=== PATIENT | male | born 1970 | race Caucasian/White ===

== ENCOUNTER 2021-06-21 10:21 | Emergency (ER) | payer BC ==
[~2021-06-21] VITALS: Ht 185 cm; Wt 113.0 kg
[2021-06-21 10:30] VITALS: BP 167/109
--- NOTE | 2021-06-21 10:47 | ED GI ---
General Chief Complaint: Rect Problems Stated Complaint: RECTAL BLEEDING Nursing Triage Note: ARRIVED VIA AMB TO ROOM 06. COMPLAINS OF A HEMORRHOID THAT IS CAUSING BLEEDING THAT STARTED THIS AM. Source of Information: Patient Exam Limitations: No Limitations (ROE JIMENEZ APRN) History of Present Illness Date Seen by Provider: Jun 21, 2021 Time Seen by Provider: 10:47 Initial Comments To ER with an exquisitely tender and swollen hemorrhoid to the left side since Friday. Bleeding started this morning. Timing/Duration: 1-2 Days Severity/Quality: Severe Radiation: No Radiation Activities at Onset: None Associated Symptoms: Denies Symptoms (ROE JIMENEZ APRN) Allergies and Home Medications Allergies Coded Allergies: No Known Drug Allergies (Unverified , 06/21/21) Patient Home Medication List Home Medication List Reviewed: Yes (ROE JIMENEZ APRN) Docusate Sodium (Colace) 100 Mg Capsule, 100 MG PO DAILY Prescribed by: ROE JIMENEZ on 06/21/21 1101 Hydrocodone/Acetaminophen (Hydrocodone-Acetamin 5-325 mg) 1 Each Tablet, 1 TAB PO Q4H PRN for PAIN-MODERATE (5-7) Prescribed by: ROE JIMENEZ on 06/21/21 1102 Lidocaine HCl (Lidocaine) 35 Gm Oint, 1 GM TP TID Prescribed by: ROE JIMENEZ on 06/21/21 1123 Review of Systems Review of Systems Constitutional: see HPI EENTM: No Symptoms Reported Respiratory: No Symptoms Reported Cardiovascular: No Symptoms Reported Gastrointestinal: See HPI, Rectal Bleeding Genitourinary: No Symptoms Reported Musculoskeletal: no symptoms reported Skin: no symptoms reported Psychiatric/Neurological: No Symptoms Reported Endocrine: No Symptoms Reported Hematologic/Lymphatic: No Symptoms Reported (ROE JIMENEZ APRN) Past Gxwiqpf-Muiknp-Pimpwx Hx Patient Social History Tobacco Use?: No Substance use?: No (ROE JIMENEZ APRN) Immunizations Up To Date Second COVID19 Vaccination Niraj: J&J (ROE JIMENEZ APRN) Physical Exam Vital Signs Vital Signs - First Documented 06/21/21 10:30 Temp 36.5 Pulse 100 Resp 16 B/P (MAP) 167/109 (128) Pulse Ox 99 O2 Delivery Room Air (SHITAL WOOD MD) Vital Signs Capillary Refill : Less Than 3 Seconds (ROE JIMENEZ APRN) Height/Weight/BMI Height: '" Weight: lbs. oz. kg; 33.00 BMI Method: General Appearance: WD/WN, no apparent distress HEENT: PERRL/EOMI, normal ENT inspection Respiratory: normal breath sounds, no respiratory distress, no accessory muscle use Cardiovascular: regular rate, rhythm, no murmur Gastrointestinal: normal bowel sounds, non tender, soft Extremities: normal range of motion, non-tender Male: other (There is a marble sized left-sided acutely thrombosed external hemorrhoid with 2 areas of active oozing of dark venous blood.) Neurologic/Psychiatric: alert, normal mood/affect, oriented x 3 Skin: normal color, warm/dry (ROE JIMENEZ APRN) Progress/Results/Core Measures Results/Orders Lab Results Laboratory Tests Test 06/21/21 10:49 Range/Units White Blood Count 8.5 4.3-11.0 10^3/uL Red Blood Count 5.02 4.30-5.52 10^6/uL Hemoglobin 14.5 13.3-17.7 g/dL Hematocrit 44 40-54 % Mean Corpuscular Volume 87 80-99 fL Mean Corpuscular Hemoglobin 29 25-34 pg Mean Corpuscular Hemoglobin Concent 33 32-36 g/dL Red Cell Distribution Width 12.5 10.0-14.5 % Platelet Count 259 130-400 10^3/uL Mean Platelet Volume 8.7 L 9.0-12.2 fL Immature Granulocyte % (Auto) 1 % Neutrophils (%) (Auto) 77 H 42-75 % Lymphocytes (%) (Auto) 11 L 12-44 % Monocytes (%) (Auto) 10 0-12 % Eosinophils (%) (Auto) 1 0-10 % Basophils (%) (Auto) 1 0-10 % Neutrophils # (Auto) 6.5 1.8-7.8 10^3/uL Lymphocytes # (Auto) 1.0 1.0-4.0 10^3/uL Monocytes # (Auto) 0.9 0.0-1.0 10^3/uL Eosinophils # (Auto) 0.1 0.0-0.3 10^3/uL Basophils # (Auto) 0.0 0.0-0.1 10^3/uL Immature Granulocyte # (Auto) 0.1 0.0-0.1 10^3/uL (SHITAL WOOD MD) Medications Given in ED Current Medications Medications Dose Ordered Sig/Christianne Route Start Time Stop Time Status Last Admin Dose Admin Lidocaine HCl 10 ml ONCE ONCE TOP 06/21/21 11:00 06/21/21 11:01 DC 06/21/21 10:52 10 ML Lidocaine/ Epinephrine 20 ml ONCE ONCE INJ 06/21/21 11:00 06/21/21 11:01 DC 06/21/21 10:52 20 ML (SHITAL WOOD MD) Vital Signs/I&O 06/21/21 10:30 Temp 36.5 Pulse 100 Resp 16 B/P (MAP) 167/109 (128) Pulse Ox 99 O2 Delivery Room Air (SHITAL WOOD MD) Blood Pressure Mean: 128 Departure Communication (Admissions) He has been using crdm-vae-[id number] steroid cream without relief. Given the severe pain will numb this up with a little lidocaine with epinephrine, incise the hemorrhoid and extract the clot. 1121-we anesthetized the anus with topical lidocaine gel. After letting that sit for 10 to 15 minutes the hemorrhoid was anesthetized with 2 mL of lidocaine with epinephrine. Small incision made with an 11 blade scalpel. Small to moderate amount of clot was extracted. Patient tolerated well. Topical lidocaine applied with minimal oozing of blood at the end. (ROE JIMENEZ APRN) Impression Primary Impression: Thrombosed external hemorrhoid Disposition: HOME, SELF-CARE Condition: Stable Departure-Patient Inst. Decision time for Depature: 10:57 (ROE JIMENEZ APRN) Referrals: KRYSTAL LIRA BRETT D DO KIDO, TAKAAKI MD NO,LOCAL PHYSICIAN (PCP) Primary Care Physician Patient Instructions: Hemorrhoids ED Add. Discharge Instructions: . Expect some oozing of blood to continue throughout today and then less intense but still persistent oozing tapering off throughout the next 3 to 5 days. Use the topical lidocaine as needed. Make sure that your bowel movements are soft with increased water intake for the next week at least and stool softener Colace. Take the hydrocodone for pain as directed. After you have a bowel movement try not to wipe with toilet paper for at least the next week, instead get in either the bathtub or the shower and rinse off. All discharge instructions reviewed with patient and/or family. Voiced understanding. Scripts Lidocaine HCl (Lidocaine) 35 Gm Oint 1 GM TP TID, #1 EA Prov: ROE JIMENEZ APRN 06/21/21 Docusate Sodium (Colace) 100 Mg Capsule 100 MG PO DAILY, #30 CAP Prov: ROE JIMENEZ APRN 06/21/21 Hydrocodone/Acetaminophen (Hydrocodone-Acetamin 5-325 mg) 1 Each Tablet 1 TAB PO Q4H PRN for PAIN-MODERATE (5-7), #14 TAB Prov: ROE JIMENEZ APRN 06/21/21 ATTENDING PHYSICIAN NOTE: I was physically present as attending physician in the emergency department during the care of this patient, but I was not directly involved in the decision making or delivery of care for this patient. (SHITAL WOOD MD) ROE JIMENEZ APRN Jun 21, 2021 10:47 SHITAL WOOD MD Jun 21, 2021 13:54
[2021-06-21] MEDS ORDERED: LIDOCAINE/EPI 2% 1:100,00 (XYLOCAINE) 20 ML VIAL INJ ONE (11:00)
[2021-06-21] MEDS ORDERED: LIDOCAINE UROJET 2% GEL 10 ML PKG TOP ONE (11:00)
[2021-06-21] MEDS ORDERED: ACHD5005 PO (11:01)
[2021-06-21] MEDS ORDERED: DOCU-143 PO (11:01)
[2021-06-21 11:07] LABS: BASOPHILS % (AUTO) 1 % (0-10); EOSINOPHILS # (AUTO) 0.1 10^3/uL (0.0-0.3); EOSINOPHILS % (AUTO) 1 % (0-10); HEMATOCRIT 44 % (40-54); HEMOGLOBIN 14.5 g/dL (13.3-17.7); LYMPHOCYTES % (AUTO) 11 % (12-44); MEAN CORPUSCULAR HEMOGLOBIN 29 pg (25-34); MEAN CORPUSCULAR HGB CONC 33 g/dL (32-36); MEAN CORPUSCULAR VOLUME 87 fL (80-99); MEAN PLATELET VOLUME 8.7 fL (9.0-12.2); MONOCYTES # (AUTO) 0.9 10^3/uL (0.0-1.0); MONOCYTES % (AUTO) 10 % (0-12); NEUTROPHILS # (AUTO) 6.5 10^3/uL (1.8-7.8); NEUTROPHILS % (AUTO) 77 % (42-75); PLATELET COUNT 259 10^3/uL (130-400); WHITE BLOOD COUNT 8.5 10^3/uL (4.3-11.0)
[2021-06-21] MEDS ORDERED: LD5O35 TP (11:23)
== END 2021-06-21 11:32 | disposition home or self-care (01) ==
LOC: ER 10:24
DX: K64.5 Perianal venous thrombosis (principal)
CPT/HCPCS: 36415; 85025

== ENCOUNTER 2021-11-08 05:30 | Outpatient (CLI) | payer BC ==
[~2021-11-08] VITALS: Ht 185 cm; Wt 115.0 kg
[~2021-11-08 05:30] MED LIST: ACHD5005 PO; DOCU-143 PO; LD5O35 TP
[2021-11-08] MEDS ORDERED: LISI20TA26 PO (10:17)
== END 2021-11-08 10:23 | disposition home or self-care (01) ==
LOC: PREOP 05:30
PROVIDERS: ATTEND Surgery
DX: Z01.818 Encounter for other preprocedural examination (principal)

== ENCOUNTER → 2021-11-12 | Outpatient (CLI) | payer BC ==
[~2021-11-12] MED LIST changes: +CATHETER FLUSH 10 ML SYR IV PRN; +HOLD METFORMIN - RECEIVED CONTRAST 20 ML VIAL IV SCH; +IOHEXOL 350 MG/ML 100 ML (OMNIPAQUE 350) VIAL IV ONE; +LISI20TA26 PO; +NS 100 ML (IVPB) BAG IV ONE
--- NOTE | 2021-11-12 11:47 | Diagnostic Imaging Report ---
PROCEDURE: CT abdomen and pelvis with and without contrast. TECHNIQUE: Precontrast acquisitions were acquired through the abdomen and pelvis. Multiple contiguous axial images were obtained through the abdomen and pelvis after the administration of intravenous contrast. Auto Exposure Controls were utilized during the CT exam to meet ALARA standards for radiation dose reduction. INDICATION: Abdominal pain and possible kidney stones. No prior studies are available for comparison. FINDINGS: The lung bases are clear. No discrete liver mass is detected. Gallbladder is unremarkable. No biliary ductal dilatation is seen. The pancreas and spleen are unremarkable. No adrenal mass is detected. There are multiple punctate nonobstructing calculi within both kidneys. In addition, there is a 5 mm calculus at the right UVJ producing moderate hydroureteronephrosis. The left ureter is unremarkable. Aorta is nonaneurysmal. No central retroperitoneal or mesenteric lymphadenopathy is seen. Bowel loops are nonobstructed. There is generalized colonic diverticulosis. There does appear to be some mild inflammatory stranding adjacent to the descending colon and mild diverticulitis cannot be entirely excluded. There is no free fluid or fluid collection identified. Prostate is unremarkable. IMPRESSION: 1. Bilateral nonobstructing nephrolithiasis. In addition, there is a 5 mm right UVJ calculus producing moderate hydroureteronephrosis. 2. Generalized diverticulosis. There are findings suggestive of mild diverticulitis of the descending colon as well. No bowel obstruction or abscess formation is identified. Dictated by: Dictated on workstation # [id number]
== END ==
LOC: RAD 09:49
PROVIDERS: ATTEND Surgery
DX: N13.2 Hydronephrosis with renal and ureteral calculous obstruction (principal); K57.90 Diverticulosis of intestine, part unspecified, without perforation or abscess without bleeding
CPT/HCPCS: 74178

== ENCOUNTER 2021-11-15 10:49 | Day surgery (SDC) | payer BC ==
[2021-11-15] VITALS (10 sets, daily range): BP systolic 89–149; BP diastolic 52–100
[~2021-11-15] VITALS: Ht 185 cm; Wt 115.0 kg
[~2021-11-15 10:49] MED LIST changes: -CATHETER FLUSH 10 ML SYR IV PRN; -HOLD METFORMIN - RECEIVED CONTRAST 20 ML VIAL IV SCH; -IOHEXOL 350 MG/ML 100 ML (OMNIPAQUE 350) VIAL IV ONE; -NS 100 ML (IVPB) BAG IV ONE
--- NOTE | 2021-11-15 11:01 | Progress Note-Pre Operative ---
Pre-Operative Progress Note H&P Reviewed The H&P was reviewed, patient examined and no changes noted. Date Seen by Provider: Nov 15, 2021 Time Seen by Provider: 11: Date H&P Reviewed: Nov 15, 2021 Time H&P Reviewed: 11: Pre-Operative Diagnosis: anal fistula, rectal pain ASHISH TREVINO DO Nov 15, 2021 11:01
[2021-11-15] MEDS ORDERED: LACTATED RINGERS 1,000 ML IV PRN (11:30)
[2021-11-15] MEDS ORDERED: proPOfol 200 MG/20 ML (DIPRIVAN) VIAL IV ONE (12:47)
[2021-11-15] MEDS ORDERED: fentaNYL INJ 100 MCG/2 ML AMP ONE (12:47)
[2021-11-15] MEDS ORDERED: ONDANSETRON 4 MG/2 ML (SDV) Z0FRAN ONE (12:47)
[2021-11-15] MEDS ORDERED: LIDOCAINE PF 2% 5 ML (XYLOCAINE) VIAL ONE (12:47)
[2021-11-15] MEDS ORDERED: MIDAZOLAM 2 MG/2 ML (VERSED) VIAL ONE (12:47)
[2021-11-15] MEDS ORDERED: SEVOFLURANE (ULTANE) 15 ML INHAL SOLN ONE (12:47)
[2021-11-15] MEDS ORDERED: LIDOCAINE/EPI 2% 1:100,00 (XYLOCAINE) 20 ML VIAL ONE (13:00)
[2021-11-15] MEDS ORDERED: morphine INJ 10 MG/ML 1ML (SYR OR VIAL) IVP ONE (16:15)
[2021-11-15] MEDS ORDERED: fentaNYL INJ 100 MCG/2 ML AMP IVP ONE (16:15)
[2021-11-15] MEDS ORDERED: ONDANSETRON 4 MG/2 ML (SDV) Z0FRAN IVP PRN (16:15)
--- NOTE | 2021-11-15 16:27 | Anesthesia-General Post-Op ---
General Patient Condition Mental Status/LOC: Same as Preop Cardiovascular: Satisfactory Nausea/Vomiting: Absent Respiratory: Satisfactory Pain: Controlled Complications: Absent Post Op Complications Complications None Follow Up Care/Instructions Patient Instructions None needed. Anesthesia/Patient Condition Patient Condition Patient is doing well, no complaints, stable vital signs, no apparent adverse anesthesia problems. No complications reported per nursing. ILYA SALDIVAR CRNA Nov 15, 2021 16:27
[2021-11-15] MEDS ORDERED: HYDROcodone/APAP 5 MG/325 MG (LORTAB) TAB ONE (16:28)
[2021-11-15] MEDS ORDERED: HYDROcodone/APAP 5 MG/325 MG (LORTAB) TAB PO ONE (16:45)
--- NOTE | 2021-11-15 22:56 | OPERATIVE REPORT ---
DATE OF SERVICE: 11/15/2021 PREOPERATIVE DIAGNOSIS: Anal fissure and rectal pain. POSTOPERATIVE DIAGNOSIS: Anterior anal fissure, left colitis, questionable inflammatory bowel disease. PROCEDURE: Colonoscopy with cold biopsies of the left colon. Exam under anesthesia with placement of seton. SURGEON: Kendrick Sosa DO ANESTHESIA: General. ESTIMATED BLOOD LOSS: Scant. COMPLICATIONS: None. INDICATIONS: The patient is a 50-year-old male who has been having some anal pain and drainage, suspected fissure on exam. Also having some rectal pain as well. He had not had a colonoscopy either. He was discussed risks and benefits of having colonoscopy performed and exam under anesthesia and all other indicated procedures. He understands and wished to proceed. Consent was signed in the chart. DESCRIPTION OF PROCEDURE: The patient was taken to the operating suite, was placed in lithotomy position. Digital rectal exam was performed noting an opening at the 3 o'clock position from previous incision and drainage from a thrombosed external hemorrhoid also noting an opening at the 12 o'clock position, which has a little bit of mucus/purulent drainage from the area that looks to be a fistula. Anteriorly, there feels to be some chronic changes. No other palpable polyps, masses or ulcerations. Scope was inserted in the rectum and advanced all the way to cecum with minimal difficulty. Scope was then slowly retracted back. Prep was adequate. Scope was then slowly retracted back. No polyps, masses or ulcerations in the cecum, ascending and transverse colon. There was mild diverticulosis throughout the colon. Once in the descending colon, continuous inflammatory changes present all the way down to the anus, also some small ulcerations apparent. Random cold biopsies of this was obtained. Also noting diverticulitis along the entire left colon as well. Scope was retroflexed noticing continuous erythematous changes and ulcerations. Scope was returned to its normal position, slowly withdrawn until completely removed. Ditmar retractor was then inserted in the rectum, noting an area that was suggestive of the fistula tract. Using an Angiocath needle, peroxide was inserted from the external opening and this did track up, so a probe was then inserted through this opening, was able to go through the entrance into the rectum. The seton was tied to the probe and pulled through the area and then secured with tension with 0 silk suture. The patient tolerated the procedure well without any complications. He will follow up in one week to go over pathology and tighten the seton. The patient also will need to be on high fiber diet due to diverticulosis. Further recommendations pending biopsy results. Job ID: [id number] DocumentID: [id number] Dictated Date: 11/15/2021 16:44:39 Identification Printing Machine Setter Date: 11/15/2021 22:56:14 Dictated By: DO ZHANNA HERRON
== END 2021-11-15 17:20 ==
LOC: SDC 10:49
PROVIDERS: ATTEND Surgery
DX: K52.9 Noninfective gastroenteritis and colitis, unspecified (principal)
CPT/HCPCS: 87081

== ENCOUNTER 2021-11-16 11:43 | Outpatient (CLI) | payer BC ==
[~2021-11-16] VITALS: Ht 185.5 cm; Wt 115.0 kg
== END 2021-11-16 12:23 | disposition home or self-care (01) ==
LOC: PREOP 11:43
PROVIDERS: ATTEND Urology
DX: Z01.818 Encounter for other preprocedural examination (principal)

== ENCOUNTER → 2021-11-16 | Outpatient (CLI) | payer BC ==
--- NOTE | 2021-11-16 10:03 | Diagnostic Imaging Report ---
EXAMINATION: Abdomen 1 view HISTORY: RT UVJ STONE RAVI NEPHROLITHIASIS COMPARISON: 11/12/2021 FINDINGS: There is a moderate amount of gas and stool throughout the colon. Nonobstructive bowel gas pattern. No radiopaque foreign body or visualized calculus. The lung bases are clear. The osseous structures are intact. IMPRESSION: No visualized radiopaque calculus or foreign body. Dictated by: Dictated on workstation # [id number]
== END ==
LOC: RAD 09:08
PROVIDERS: ATTEND Urology
DX: N20.2 Calculus of kidney with calculus of ureter (principal)
CPT/HCPCS: 74018

== ENCOUNTER 2021-11-20 06:30 | Day surgery (SDC) | payer BC ==
[~2021-11-20] VITALS: Ht 185.5 cm; Wt 115.0 kg
[2021-11-20] VITALS (9 sets, daily range): BP systolic 106–151; BP diastolic 69–115
[2021-11-20] MEDS ORDERED: cefTRIAXone 1 GM PRE-MIX 50 ML IV ONE ×2 (06:56→07:00)
[2021-11-20] MEDS: LACTATED RINGERS 1,000 ML IV PRN ×4 (07:00→11:38)
[2021-11-20] MEDS ORDERED: fentaNYL INJ 100 MCG/2 ML AMP IV ONE (08:00)
--- NOTE | 2021-11-20 08:04 | Progress Note-Pre Operative ---
Pre-Operative Progress Note H&P Reviewed The H&P was reviewed, patient examined and no changes noted. Date Seen by Provider: Nov 20, 2021 Time Seen by Provider: 08:03 Date H&P Reviewed: Nov 20, 2021 Time H&P Reviewed: 08:03 Pre-Operative Diagnosis: RT DISTAL URETERAL STONE ARLET MAZARIEGOS MD Nov 20, 2021 08:04
--- NOTE | 2021-11-20 08:15 | Progress Note-Post Operative ---
Post-Operative Progess Note Surgeon (s)/Platen Press Feeder (s) Surgeon ARLET MAZARIEGOS MD Platen Press Feeder: NONE Pre-Operative Diagnosis RT DISTAL URETERAL STONE Post-Operative Diagnosis SAME Procedure & Operative Findings Date of Procedure 11/20/21 Procedure Performed/Findings CYSTOSCOPY, RT URETEROSCOPY AND RT RETROGRADE UROGRAM Anesthesia Type GENERAL Estimated Blood Loss Estimated blood loss (mL): NONE Specimens/Packing Specimens Removed NONE Packing: NONE ARLET MAZARIEGOS MD Nov 20, 2021 08:14
--- NOTE | 2021-11-20 08:17 | Discharge Inst-Urology ---
Discharge Inst-Urology Reconcile Patient Problems Problems Reviewed?: Yes Final Diagnosis RT DISTAL URETERAL STONE Patient Instructions/Follow Up Plan/Assessment/Instructions Please make appointment to been seen in office in 4 weeks. Lab to provide patient with stone risk profile kit with instructions to do as O.P Increase oral fluids for 48 hours and then as needed. Diet and Activity as tolerated. If questions or concerns contact your physician Or seek help at emergency department. ARLET MAZARIEGOS MD Nov 20, 2021 08:17
--- NOTE | 2021-11-20 08:49 | Diagnostic Imaging Report ---
EXAMINATION: Abdomen, 1 view. HISTORY: Kidney stone. COMPARISON: 11/16/2021. FINDINGS: There is a moderate amount of gas and stool throughout the colon. Nonobstructive bowel gas pattern. No radiopaque foreign body. The osseous structures are intact. IMPRESSION: Moderate stool burden without other acute abnormality in the abdomen. Dictated by: Dictated on workstation # [id number]
[2021-11-20] MEDS ORDERED: morphine INJ 10 MG/ML 1ML (SYR OR VIAL) IVP ONE (09:15)
[2021-11-20] MEDS ORDERED: ONDANSETRON 4 MG/2 ML (SDV) Z0FRAN IVP PRN (09:15)
[2021-11-20] MEDS ORDERED: HYDROmorphone 2 MG/ML VIAL (DILAUDID) IV ONE (09:15)
[2021-11-20] MEDS ORDERED: MIDAZOLAM 2 MG/2 ML (VERSED) VIAL ONE (09:26)
[2021-11-20] MEDS ORDERED: LIDOCAINE PF 2% 5 ML (XYLOCAINE) VIAL ONE (09:26)
[2021-11-20] MEDS ORDERED: fentaNYL INJ 100 MCG/2 ML AMP ONE (09:26)
[2021-11-20] MEDS ORDERED: ROCURONIUM 50 MG/5 ML (ZEMURON) VIAL IV ONE (09:26)
[2021-11-20] MEDS ORDERED: GLYCOPYRROLATE 0.2 MG/ML (ROBINUL) 2 ML VIAL ONE (09:26)
[2021-11-20] MEDS ORDERED: proPOfol 200 MG/20 ML (DIPRIVAN) VIAL IV ONE (09:26)
[2021-11-20] MEDS ORDERED: NEOSTIGMINE (BLOXIVERZ ) 1 MG/1ML 10 ML VIAL ONE (09:26)
[2021-11-20] MEDS ORDERED: PHENYLEPHRINE 100 MCG/ML 10 ML (ANESTHESIA) SYR ONE (09:39)
[2021-11-20] MEDS ORDERED: SEVOFLURANE (ULTANE) 15 ML INHAL SOLN ONE (10:01)
--- NOTE | 2021-11-20 10:22 | Anesthesia-General Post-Op ---
General Patient Condition Mental Status/LOC: Same as Preop Cardiovascular: Satisfactory Nausea/Vomiting: Absent Respiratory: Satisfactory Pain: Controlled Complications: Absent Post Op Complications Complications None Follow Up Care/Instructions Patient Instructions None needed. Anesthesia/Patient Condition Patient Condition Patient is awake in PACU and doing well, no complaints, stable vital signs, no apparent adverse anesthesia problems. No complications reported per nursing. RADHA SUÁREZ DO Nov 20, 2021 10:22
--- NOTE | 2021-11-20 14:48 | OPERATIVE REPORT ---
DATE OF SERVICE: 11/20/2021 PREOPERATIVE DIAGNOSIS: Right distal ureteral stone. POSTOPERATIVE DIAGNOSIS: Right distal ureteral stone. OPERATION PERFORMED: Cystoscopy, right ureteroscopy and retrograde urogram. SURGEON: Luis Mazariegos MD ANESTHESIA: General. COMPLICATIONS: None. DESCRIPTION OF PROCEDURE: Under satisfactory general anesthesia, the patient in lithotomy position, genitalia were prepped and draped in the usual sterile fashion. Cystoscope was introduced under vision. The anterior urethra was normal. The prostate was nonobstructing. The bladder neck was open. Bladder was entered and carefully inspected. There was no foreign body or stones. Ureteric orifices normal in shape, size and configuration with clear efflux equal on both sides. Using the foroblique lens, I dilated the right ureteral orifice intramural portion to accommodate a 6.9 [place] semi-rigid ureteroscope. I went all the way up to the kidney and then antegrade, retrograde and antegrade, there were no stones, no evidence of any inflammation. I backed up all the way down to just above the ureteral orifice and I injected contrast. There was no filling defect anywhere in the ureter and complete emptying of the ureter immediately. I removed the ureteroscope, reinserted the cystoscope to empty the bladder. The patient tolerated the procedure and anesthesia well and was sent to recovery room in stable condition. PLAN: I told the that even if he had a stone that was missed all the way up to the kidney with the dilated ureter now you should have no problem passing it. If he does so, he should continue straining urine for a couple 3 days, we will also give him stone risk profile to do as an outpatient to work him up for prevention of stones. We will see him back in four weeks. CC: Dr. Herber Rodriguez - requested, unable to deliver. Job ID: [id number] DocumentID: [id number] Dictated Date: 11/20/2021 10:12:05 Heating Technician Date: 11/20/2021 14:47:56 Dictated By: LUIS MAZARIEGOS MD
== END 2021-11-20 11:45 | disposition home or self-care (01) ==
LOC: SDC 06:30
PROVIDERS: ATTEND Urology
DX: N20.2 Calculus of kidney with calculus of ureter (principal); R03.0 Elevated blood-pressure reading, without diagnosis of hypertension
CPT/HCPCS: 74018; 76000; 87081

== ENCOUNTER 2021-12-03 11:42 | Outpatient (RCR) | payer BC | END 2021-12-16 | disposition home or self-care (01) | LOC: LAB 11:42 | PROVIDERS: ATTEND Urology | DX: N20.9 Urinary calculus, unspecified (principal) | CPT/HCPCS: 36415; 82140; 82340; 82507; 82570; 83735; 83945; 83986; 84105; 84133; 84300; 84392; 84560 ==

== ENCOUNTER 2021-12-29 20:33 | Emergency (ER) | payer BC ==
[~2021-12-29] VITALS: Ht 185.4 cm; Wt 121.3 kg
[2021-12-29] MEDS ORDERED: LIDOCAINE 1% INJ 20 ML VIAL INJ ONE (21:00)
--- NOTE | 2021-12-29 21:12 | ED Upper Extremity ---
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 PATIENT HAS PRESSURE APPLIED AND WOUND IS COVERED WITH GUAZE. PT IS UTD ON TETANUS. 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 He states his tetanus is up todate. Onset: just prior to arrival Severity: mild Method of Injury: incised Allergies and Home Medications Allergies Coded Allergies: No Known Drug Allergies (Unverified , 06/21/21) Patient Home Medication List Home Medication List Reviewed: Yes Lisinopril (Lisinopril) 20 Mg Tablet, 20 MG PO DAILY, (Reported) Entered as Reported by: TOMASZ BLOOM on 11/08/21 1017 Review of Systems Constitutional: no symptoms reported EENTM: no symptoms reported Respiratory: no symptoms reported Cardiovascular: no symptoms reported Gastrointestinal: no symptoms reported Genitourinary: no symptoms reported Musculoskeletal: other (laceration right thenar eminence ) Past Khpdcvo-Honhvp-Cmwlyw Hx Patient Social History Tobacco Use?: Yes Smokeless Tobacco Frequency: Current Everyday User Use of E-Cig and/or Vaping dev: No Substance use?: No Alcohol Use?: No Pt feels they are or have been: No Immunizations Up To Date Influenza Vaccine Up-to-Date: No; Not Current First/Initial COVID19 Vaccinat: 2020 Second COVID19 Vaccination Niraj: 2020 Third COVID19 Vaccination Date: 2020 Seasonal Allergies Seasonal Allergies: Yes Past Medical History Surgeries: Yes (HERNIA REPAIR, HEMMORHOID, COLONOSCOPY) Respiratory: No Currently Using CPAP: No Currently Using BIPAP: No Cardiac: Yes Hypertension Neurological: No Genitourinary: Yes Kidney Stones Gastrointestinal: Yes (RECTAL PAIN, FISTULA) Musculoskeletal: Yes (UNSURE OF KIDNEY OR GI PROBLEM) Chronic Back Pain Endocrine: No HEENT: Yes (WEARS GLASSES) Cancer: No Psychosocial: No Integumentary: No Blood Disorders: No Physical Exam Vital Signs Vital Signs - First Documented 12/29/21 20:41 Temp 37.0 Pulse 100 Resp 16 B/P (MAP) 126/88 (101) Pulse Ox 98 O2 Delivery Room Air Capillary Refill : Less Than 3 Seconds Height, Weight, BMI Height: '" Weight: lbs. oz. kg; 35.00 BMI Method: General Appearance: WD/WN, no apparent distress HEENT: PERRL/EOMI Neck: non-tender Cardiovascular: regular rate, rhythm Respiratory: lungs clear Hand: laceration (Patient has a gaping 3 cm laceration over the thenar eminence. No deep tissue involvement) Neurologic/Psychiatric: coroner's juror II-XII nml as tested Procedures/Interventions Wound Location: Upper Extremities Wound Length (cm): 3 Wound's Depth, Shape: superficial Wound Explored: clean Irrigated w/ Saline (ccs): 250 Anesthesia: 1% Lidocaine Volume Anesthetic (ccs): 3 Suture: Ethlion Suture Size: 5-0 Number of Sutures: 4 Progress/Results/Core Measures Results/Orders My Orders Orders - PRINCE RODRIGUEZ Lidocaine 1% Inj 20 Ml (Xylocaine 1% Inj (12/29/21 21:00) Medications Given in ED Current Medications Medications Dose Ordered Sig/Christianne Route Start Time Stop Time Status Last Admin Dose Admin Lidocaine HCl 20 ml ONCE ONCE INJ 12/29/21 21:00 12/29/21 21:01 DC 12/29/21 21:19 20 ML Vital Signs/I&O 12/29/21 20:41 Temp 37.0 Pulse 100 Resp 16 B/P (MAP) 126/88 (101) Pulse Ox 98 O2 Delivery Room Air Blood Pressure Mean: 101 Departure Communication (Admissions) Wound irrigated and then closed at bedside without complication. Impression Primary Impression: Hand laceration Disposition: HOME, SELF-CARE Condition: Stable Departure-Patient Inst. Decision time for Depature: 22:00 Referrals: FABY VALDIVIA DO (PCP/Family) Primary Care Physician Patient Instructions: Wound Care (DC), Laceration Repair With Stitches ED PRINCE RODRIGUEZ Dec 29, 2021 21:12
[2021-12-29 22:14] VITALS: BP 125/84
== END 2021-12-29 22:14 | disposition home or self-care (01) ==
LOC: EDUNIT# 20:33 → ER 20:35
DX: S61.011A Laceration without foreign body of right thumb without damage to nail, initial encounter (principal); F17.200 Nicotine dependence, unspecified, uncomplicated; W26.8XXA Contact with other sharp object(s), not elsewhere classified, initial encounter
CPT/HCPCS: 12002; 12013

== ENCOUNTER 2022-01-08 15:39 | Emergency (ER) | payer BC ==
[2022-01-08 16:04] VITALS: BP 126/77
== END 2022-01-08 16:04 | disposition home or self-care (01) ==
LOC: EDUNIT# 15:39 → ER 15:41
DX: S61.011D Laceration without foreign body of right thumb without damage to nail, subsequent encounter (principal); X58.XXXD Exposure to other specified factors, subsequent encounter

== ENCOUNTER 2022-01-22 05:32 | Outpatient (CLI) | payer BC ==
[~2022-01-22] VITALS: Ht 185.4 cm; Wt 110.5 kg
== END 2022-01-23 10:55 | disposition home or self-care (01) ==
LOC: PREOP 05:32
PROVIDERS: ATTEND Surgery
DX: Z01.818 Encounter for other preprocedural examination (principal)

== ENCOUNTER 2022-01-24 08:55 | Day surgery (SDC) | payer BC ==
[~2022-01-24] VITALS: Ht 185.4 cm; Wt 110.5 kg
[2022-01-24] VITALS (9 sets, daily range): BP systolic 114–130; BP diastolic 74–94
[2022-01-24] MEDS ORDERED: ceFAZolin INJECTION 2,000 MG in NS (IVPB) 50 ML IV ONE (09:15)
[2022-01-24] MEDS: LACTATED RINGERS 1,000 ML IV PRN ×2 (09:24→11:15)
--- NOTE | 2022-01-24 09:37 | Progress Note-Pre Operative ---
Pre-Operative Progress Note Date of Available H&P: Jan 07, 2022 Date H&P Reviewed: Feb 07, 2022 Time H&P Reviewed: 09:37 History & Physical: H&P Reviewed, Patient Examed, No changes noted Pre-Operative Diagnosis: anal fistula ASHISH TREVINO DO Jan 24, 2022 09:37
[2022-01-24] MEDS ORDERED: fentaNYL INJ 100 MCG/2 ML AMP ONE ×2 (10:04→11:07)
[2022-01-24] MEDS ORDERED: MIDAZOLAM 2 MG/2 ML (VERSED) VIAL ONE (10:04)
[2022-01-24] MEDS ORDERED: proPOfol 200 MG/20 ML (DIPRIVAN) VIAL IV ONE ×2 (10:04→11:02)
[2022-01-24] MEDS ORDERED: ONDANSETRON 4 MG/2 ML (SDV) Z0FRAN ONE (10:04)
[2022-01-24] MEDS ORDERED: LIDOCAINE PF 2% 5 ML (XYLOCAINE) VIAL ONE (10:04)
[2022-01-24] MEDS ORDERED: LIDOCAINE/EPI 2% 1:200,00 (XYLOCAINE) 20 ML VIAL ONE (10:12)
[2022-01-24] MEDS ORDERED: SUCCINYLCHOLINE INJ 100 MG/5 ML SYR/VIAL ONE (11:02)
[2022-01-24] MEDS ORDERED: SEVOFLURANE (ULTANE) 15 ML INHAL SOLN ONE (11:39)
[2022-01-24] MEDS ORDERED: morphine INJ 10 MG/ML 1ML (SYR OR VIAL) IVP ONE (11:45)
[2022-01-24] MEDS ORDERED: ONDANSETRON 4 MG/2 ML (SDV) Z0FRAN IVP PRN (11:45)
--- NOTE | 2022-01-24 13:17 | Discharge Inst-Simple/Standard ---
Discharge Inst-Standard Patient Instructions/Follow Up Plan of Care/Instructions/FU: 2 weeks Ian Activity as Tolerated: No Discharge Diet: Regular Diet (high fiber) Other Inst to Patient Follow up Appt: Make appointment for 2 week. Instructions: No lifting greater than 10 pounds. No strenuous activity. May shower in 24 hours, no tub bath or soaking. Use incentive spirometer at home as directed. No Smoking Skin/Wound Care: You have a plug just inside the anus, if it doesn't come out before 24 hours, gently pull it out. You will have some suture strings there as well... leave them alone. Symptoms to Report: Appetite Changes, Extremity Discoloration, Numbness/Tingling, Swelling Increased, Bleeding Excessive, Eyesight Changes, Pain Increased, Urine Color Change, Constipation(Persistent), Fever over 101 degree F, Pain/Pressure in chest, Urinating Difficulty, Cough Up/Vomit Blood, Heart Beat Irreg/Pounding, Pain/Pressure in jaw, Vaginal Bleeding Increase, Cramps in feet or legs, Lightheadedness, Pain/Pressure in shoulder, Diarrhea(Persistent), Memory Changes Suddenly, Questions/Concerns, Weight gain consecutive days, Dizziness/Fainting, Nausea/Vomiting, Shortness of Breath, Weight gain over 2 pounds If questions or concerns contact your physician Or seek help at emergency department. ASHISH TREVINO DO Jan 24, 2022 13:17
--- NOTE | 2022-01-24 14:02 | Anesthesia-General Post-Op ---
General Patient Condition Mental Status/LOC: Same as Preop Cardiovascular: Satisfactory Nausea/Vomiting: Absent Respiratory: Satisfactory Pain: Controlled Complications: Absent Post Op Complications Complications None Follow Up Care/Instructions Patient Instructions None needed. Anesthesia/Patient Condition Patient Condition Patient is already discharged to home but he was doing well, no complaints, stable vital signs, no apparent adverse anesthesia problems prior to his discharge. No complications reported per nursing. RADHA SUÁREZ DO Jan 24, 2022 14:01
--- NOTE | 2022-01-24 18:54 | OPERATIVE REPORT ---
DATE OF SERVICE: 01/24/2022 PREOPERATIVE DIAGNOSIS: Anal fistula. POSTOPERATIVE DIAGNOSES: Colitis, diverticulosis, small fistula tract. PROCEDURE: Flexible sigmoidoscopy with cold biopsies, exam under anesthesia with biopsy of fistula tract and fistulectomy. SURGEON: Kendrick Sosa DO ANESTHESIA: General. ESTIMATED BLOOD LOSS: Minimal. COMPLICATIONS: None. INDICATIONS: The patient is a 51-year-old male with a previous fistula. He continued to have some drainage of a questionable fistula as well. He understands risks and benefits of procedure and wishes to proceed. Consent was signed in the chart. DESCRIPTION OF PROCEDURE: The patient was taken to the endoscopy suite, placed in left lateral recumbent position. Timeout was performed. Digital rectal exam was performed demonstrating two areas of ulceration with one being a small fistula in appearance. Scope was inserted in the rectum, advanced through the sigmoid colon, noting some diverticulosis within the sigmoid colon areas of inflammation and appearance of ulcerations through the sigmoid and rectum. No polyps or masses present. Once in the rectum, scope was retroflexed, but unable to visualize any other pathology. Scope was inserted and retracted multiple times with difficulty visualizing any pathology. A Dittmar retractor was inserted with a healed posterior fissure in appearance. In approximately 4 o'clock position, there was a small fistula where an ulceration was. This is where biopsy forceps were used to take a biopsy of the fistula tract and using cautery the fistula was opened completely. This was superficial. The mucosa was then closed using 3-0 Vicryl suture. At approximately the 1 o'clock position also no opening of previous fistula that had a Seton placed already. The mucosa has not grown over so we closed this using 3-0 Vicryl suture as well. The wound areas were then suctioned and Gelfoam and Vaseline gauze plug was inserted to assist with hemostasis. The patient tolerated the procedure well without any complications. He was taken to recovery room in stable condition. If not noted above, we did take some cold biopsies of the sigmoid and rectum as we were withdrawing the scope. RECOMMENDATIONS: Further recommendations pending results. The patient will follow up in 2 weeks. Any issues before that, he will be seen at that time. Job ID: [id number] DocumentID: [id number] Dictated Date: 01/24/2022 13:21:50 [employer]inder Date: 01/24/2022 18:53:38 Dictated By: DO ZHANNA HERRON
== END 2022-01-24 13:45 | disposition home or self-care (01) ==
LOC: SDC 08:55
PROVIDERS: ATTEND Surgery
DX: K52.89 Other specified noninfective gastroenteritis and colitis (principal); K57.30 Diverticulosis of large intestine without perforation or abscess without bleeding; Z79.899 Other long term (current) drug therapy; K60.3 Anal fistula; L29.0 Pruritus ani; F17.200 Nicotine dependence, unspecified, uncomplicated
CPT/HCPCS: 87081

== ENCOUNTER → 2022-03-12 | Outpatient (CLI) | payer BC | LOC: LAB 15:06 | PROVIDERS: ATTEND Internal Medicine Gastroenterology | DX: K52.9 Noninfective gastroenteritis and colitis, unspecified (principal); L98.8 Other specified disorders of the skin and subcutaneous tissue | CPT/HCPCS: 36415 ==